=== PATIENT | female | born 1945 | race Caucasian/White ===

== ENCOUNTER 2019-12-20 09:00 | Observation (INO) ==
[2019-12-20 09:36] LABS: Basophils # 0.1 K/mcL (0.0-0.2); Basophils % 0.9 %; Eosinophils # 0.1 K/mcL (0.0-0.6); Eosinophils % 1.5 %; Hematocrit 45.2 % (35.3-44.9); Hemoglobin 14.5 g/dL (11.5-15.4); Immature Granulocytes % 0.2 % (0-4); Lymphocytes # 1.5 K/mcL (0.6-4.6); Lymphocytes % 18.9 %; Mean Corpuscular HGB Conc 32.1 g/dL (31.6-35.5); Mean Corpuscular Hemoglobin 29.3 pg (28.0-33.3); Mean Corpuscular Volume 91.3 fL (83.0-100.0); Mean Platelet Volume 11.5 fL (9.4-12.4); Monocytes # 0.6 K/mcL (0.0-1.3); Monocytes % 7.1 %; Neutrophils # 5.8 K/mcL (1.6-8.9); Platelet Count 175 K/mcL (140-400); Red Blood Count 4.95 M/mcL (3.82-4.97); Red Cell Distribution Width 13.2 % (11.5-14.5); Segmented Neutrophils % 71.4 %; White Blood Count 8.1 K/mcL (4.3-11.1)
[2019-12-20 09:41] LABS: Prothrombin Time 11.9 Seconds (9.4-12.1)
[2019-12-20 09:44] LABS: Activated Partial Thrombo Time 32.8 Seconds (26.0-36.0)
[2019-12-20 09:57] LABS: Alanine Aminotransferase 13 Units/L (7-52); Albumin 4.2 g/dL (3.5-5.7); Albumin/Globulin Ratio 1.8 (1.1-2.2); Alkaline Phosphatase 63 Units/L (34-104); Aspartate Amino Transferase 19 Units/L (13-39); BUN/Creatinine Ratio 16 (6-26); Bilirubin,Direct 0.1 mg/dL (0.0-0.2); Bilirubin,Indirect 0.7 mg/dL (0.0-1.0); Bilirubin,Total 0.8 mg/dL (0.3-1.0); Blood Urea Nitrogen 11 mg/dL (8-23); Calcium 10.2 mg/dL (8.6-10.3); Carbon Dioxide 29 mEq/L (23-29); Chloride 105 mEq/L (98-107); Globulin 2.4 g/dL (2.4-3.5); Glucose 177 mg/dL (70-105); Lipase 9 Units/L (11-82); Osmolality,Calculated 298 (280-300); Potassium 3.6 mEq/L (3.5-5.1); Sodium 142 mEq/L (136-145); Total Protein 6.6 g/dL (6.4-8.9); Troponin I < 0.03 ng/mL (< 0.04); eGFR For African Americans > 60 (> 60); eGFR For Non-African Americans > 60 (> 60)
[2019-12-20] MEDS ORDERED: Nitroglycerin 1 INCH/GM PACKET TP ONE (10:51)
[2019-12-20] MEDS ORDERED: *HR* OxyCODONE Immed Rel 5 MG TABLET PO PRN (10:58)
[2019-12-20] MEDS ORDERED: Acetaminophen 325 MG TABLET PO PRN (10:58)
[2019-12-20] MEDS ORDERED: Ondansetron 4 MG/2 ML VIAL IVP PRN (10:58)
[2019-12-20] MEDS ORDERED: Naloxone 0.4 MG/ML INJ IVP PRN (10:58)
[2019-12-20] MEDS ORDERED: Aspirin 81 MG TAB.CHEW PO SCH (11:00)
[2019-12-20] MEDS ORDERED: cloNIDine HCL 0.1 MG TABLET PO ONE (12:06)
[2019-12-20] MEDS ORDERED: Famotidine 20 MG TABLET PO PRN (13:35)
[2019-12-20] MEDS ORDERED: Dextrose Gel 15 GM/37.5 ML TUBE PO PRN ×2 (13:39)
[2019-12-20] MEDS ORDERED: *HR* Dextrose 50 % in Water (Vial) 50 ML VIAL IVP PRN (13:39)
[2019-12-20] MEDS ORDERED: D5% in Water 1,000 ML IVC PRN (13:39)
[2019-12-20] MEDS ORDERED: Aspirin 81 MG TAB.CHEW PO ONE (14:00)
[2019-12-20] MEDS: Aspirin 81 MG TAB.CHEW PO SCH (14:19)
[2019-12-20] MEDS ORDERED: Nystatin POWDER 30 GM BOTTLE TP PRN (15:20)
[2019-12-20] MEDS: *HR* Heparin 5,000 UNIT/ML VIAL SQ SCH (16:04)
[2019-12-20] MEDS: Gabapentin 300 MG CAPSULE PO SCH ×2 (16:05→19:44)
[2019-12-20] MEDS: *HR* HYDROcodone/Acet 5/325 mg TABLET PO PRN ×2 (16:05→22:18)
[2019-12-20] MEDS: Insulin LISPRO 300 UNITS/3 ML VIAL SQ SCH (16:24)
[2019-12-20] MEDS: *HR* LORazepam 0.5 MG TABLET PO PRN (18:49)
[2019-12-20] MEDS: cloNIDine HCL 0.1 MG TABLET PO SCH (19:44)
[2019-12-20] MEDS ORDERED: Insulin DETEMIR 100 UNIT/ML X5UNITS SQ SCH (21:00)
[2019-12-21 02:54] LABS: Basophils # 0.1 K/mcL (0.0-0.2); Basophils % 0.8 %; Eosinophils # 0.1 K/mcL (0.0-0.6); Eosinophils % 1.9 %; Hematocrit 39.5 % (35.3-44.9); Hemoglobin 12.7 g/dL (11.5-15.4); Immature Granulocytes % 0.2 % (0-4); Lymphocytes # 1.8 K/mcL (0.6-4.6); Lymphocytes % 27.7 %; Mean Corpuscular HGB Conc 32.2 g/dL (31.6-35.5); Mean Corpuscular Hemoglobin 29.5 pg (28.0-33.3); Mean Corpuscular Volume 91.6 fL (83.0-100.0); Mean Platelet Volume 11.3 fL (9.4-12.4); Monocytes # 0.6 K/mcL (0.0-1.3); Monocytes % 8.9 %; Neutrophils # 3.9 K/mcL (1.6-8.9); Platelet Count 167 K/mcL (140-400); Red Blood Count 4.31 M/mcL (3.82-4.97); Red Cell Distribution Width 13.2 % (11.5-14.5); Segmented Neutrophils % 60.5 %; White Blood Count 6.4 K/mcL (4.3-11.1)
[2019-12-21 03:18] LABS: BUN/Creatinine Ratio 27 (6-26); Blood Urea Nitrogen 17 mg/dL (8-23); Calcium 9.6 mg/dL (8.6-10.3); Carbon Dioxide 26 mEq/L (23-29); Chloride 105 mEq/L (98-107); Chol/HDL Ratio 5.5 (0-4.9); Cholesterol 170 mg/dL (< 200); Glucose 163 mg/dL (70-105); HDL Cholesterol 31 mg/dL (40-59); LDL Cholesterol,Calculated 106 mg/dL (< 100); Magnesium 1.6 mg/dL (1.6-2.6); Osmolality,Calculated 293 (280-300); Potassium 3.2 mEq/L (3.5-5.1); Sodium 139 mEq/L (136-145); Triglycerides 166 mg/dL (< 150); eGFR For African Americans > 60 (> 60); eGFR For Non-African Americans > 60 (> 60)
[2019-12-21] MEDS: *HR* Heparin 5,000 UNIT/ML VIAL SQ SCH ×2 (06:08→17:21)
[2019-12-21] MEDS ORDERED: Regadenoson 0.4 MG/5 ML SYRINGE IVP ONE (06:12)
[2019-12-21] MEDS ORDERED: lisinopriL 20 MG TABLET PO SCH (09:00)
[2019-12-21] MEDS: *HR* LORazepam 0.5 MG TABLET PO PRN (09:56)
[2019-12-21] MEDS: Insulin LISPRO 300 UNITS/3 ML VIAL SQ SCH ×3 (10:50→16:59)
[2019-12-21] MEDS: Gabapentin 300 MG CAPSULE PO SCH ×2 (13:09→13:18)
[2019-12-21] MEDS: Aspirin 81 MG TAB.CHEW PO SCH (13:09)
[2019-12-21] MEDS: cloNIDine HCL 0.1 MG TABLET PO SCH (13:09)
[2019-12-21] MEDS: *HR* HYDROcodone/Acet 5/325 mg TABLET PO PRN (13:10)
[2019-12-21 16:55] VITALS: BP 143/81
== END 2019-12-21 18:16 | disposition home or self-care (01) ==
LOC: EMEROOARM 09:00 → 3BNU 09:00
PROVIDERS: ADMIT Internal Medicine; ATTEND Internal Medicine

== ENCOUNTER 2020-01-12 11:24 | Inpatient (IN) ==
[2020-01-12] MEDS ORDERED: Naloxone 0.4 MG/ML INJ IVP STA (12:08)
[2020-01-12 12:26] LABS: Basophils # 0.1 K/mcL (0.0-0.2); Basophils % 0.7 %; Eosinophils # 0.2 K/mcL (0.0-0.6); Eosinophils % 1.6 %; Hematocrit 43.8 % (35.3-44.9); Hemoglobin 13.7 g/dL (11.5-15.4); Immature Granulocytes % 0.2 % (0-4); Lymphocytes # 2.2 K/mcL (0.6-4.6); Lymphocytes % 18.3 %; Mean Corpuscular HGB Conc 31.3 g/dL (31.6-35.5); Mean Corpuscular Hemoglobin 29.5 pg (28.0-33.3); Mean Corpuscular Volume 94.4 fL (83.0-100.0); Mean Platelet Volume 11.9 fL (9.4-12.4); Monocytes # 0.8 K/mcL (0.0-1.3); Monocytes % 6.5 %; Neutrophils # 8.8 K/mcL (1.6-8.9); Platelet Count 204 K/mcL (140-400); Red Blood Count 4.64 M/mcL (3.82-4.97); Segmented Neutrophils % 72.7 %; White Blood Count 12.1 K/mcL (4.3-11.1)
[2020-01-12] MEDS ORDERED: 0.9 % Sodium Chloride 1,000 ML IVC ONE (12:57)
[2020-01-12 13:00] LABS: Alanine Aminotransferase 15 Units/L (7-52); Albumin 4.1 g/dL (3.5-5.7); Albumin/Globulin Ratio 1.6 (1.1-2.2); Alkaline Phosphatase 70 Units/L (34-104); Aspartate Amino Transferase 16 Units/L (13-39); BUN/Creatinine Ratio 13 (6-26); Bilirubin,Direct 0.1 mg/dL (0.0-0.2); Bilirubin,Indirect 0.5 mg/dL (0.0-1.0); Bilirubin,Total 0.6 mg/dL (0.3-1.0); Blood Urea Nitrogen 31 mg/dL (8-23); Calcium 9.8 mg/dL (8.6-10.3); Carbon Dioxide 24 mEq/L (23-29); Chloride 101 mEq/L (98-107); Ethanol < 10 mg/dL (Less than 10); Globulin 2.5 g/dL (2.4-3.5); Glucose 209 mg/dL (70-105); Osmolality,Calculated 293 (280-300); Sodium 135 mEq/L (136-145); Total Protein 6.6 g/dL (6.4-8.9); Troponin I < 0.03 ng/mL (< 0.04); eGFR For African Americans 23 (> 60); eGFR For Non-African Americans 19 (> 60)
[2020-01-12 13:24] LABS: Bacteria,Urine Few per hpf (None-Few); Bilirubin,Urine Negative (Negative); Blood,Urine Negative (Negative); Clarity,Urine Turbid (Clear); Color,Urine Yellow (Yellow); Glucose,Urine (UA) Normal (Normal); Granular Casts,Urine Few per lpf (None Seen); Hyaline Casts,Urine Moderate per lpf (None Seen); Ketones,Urine Trace mg/dL (Negative); Leukocyte Esterase,Urine Small (Negative); Mucus,Urine Few per lpf (None-Few); Nitrite,Urine Negative (Negative); PH,Urine 5.5 pH Units (5.0-8.0); Protein,Urine 30 mg/dL (Neg-Trace); RBC,Urine 0-3 per hpf (0-3); Specific Gravity,Urine 1.024 (1.010-1.025); Squamous Epithelial Cell,Urine Few per hpf (None-Few)
[2020-01-12 14:08] LABS: Amphetamine Screen,Urine Negative ng/mL (Cutoff=1000); Barbiturate Screen,Urine Negative ng/mL (Cutoff=200)
[2020-01-12 14:09] LABS: Benzodiazepines Screen,Urine Positive ng/mL (Cutoff=300); Cannabinoid Screen,Urine Negative ng/mL (Cutoff = 50); Cocaine Screen,Urine Negative ng/mL (Cutoff= 300); Opiate Screen,Urine Positive ng/mL (Cutoff=300); Phencyclidine Screen,Urine Negative ng/mL (Cutoff=25)
[2020-01-12] MEDS ORDERED: Naloxone 0.4 MG/ML INJ IVP PRN (14:35)
[2020-01-12] MEDS ORDERED: Acetaminophen 325 MG TABLET PO PRN (14:35)
[2020-01-12] MEDS ORDERED: 0.9 % Sodium Chloride 1,000 ML IVC SCH (14:45)
[2020-01-12] MEDS ORDERED: Dextrose Gel 15 GM/37.5 ML TUBE PO PRN ×2 (14:47)
[2020-01-12] MEDS ORDERED: *HR* Dextrose 50 % in Water (Vial) 50 ML VIAL IVP PRN (14:47)
[2020-01-12] MEDS ORDERED: D5% in Water 1,000 ML IVC PRN (14:47)
[2020-01-12] MEDS ORDERED: Famotidine 20 MG TABLET PO PRN (14:51)
[2020-01-12] MEDS ORDERED: cefTRIAXone 1,000 MG in 0.9 % Sodium Chloride Mini Bag 100 ML IVPB SCH (15:00)
[2020-01-12] MEDS: cefTRIAXone 1,000 MG in Water for inj. (sterile) 10 ML IVP SCH (15:32)
[2020-01-12] MEDS ORDERED: Perflutren Lipid Microsphere 1.3 ML in 0.9 % Sodium Chloride 8.7 ML IVP PRN (15:53)
[2020-01-12] MEDS ORDERED: Aspirin Enteric Coated 325 MG Tablet PO ONE (16:17)
[2020-01-12] MEDS ORDERED: *HR* LORazepam 2 MG/ML VIAL IVP PRN (16:19)
[2020-01-12] MEDS: Insulin LISPRO 300 UNITS/3 ML VIAL SQ SCH ×2 (18:27→21:02)
[2020-01-13 00:39] LABS: Basophils # 0.1 K/mcL (0.0-0.2); Basophils % 0.9 %; Eosinophils # 0.2 K/mcL (0.0-0.6); Eosinophils % 2.5 %; Hematocrit 39.9 % (35.3-44.9); Immature Granulocytes % 0.1 % (0-4); Lymphocytes # 1.8 K/mcL (0.6-4.6); Lymphocytes % 23.2 %; Mean Corpuscular HGB Conc 32.6 g/dL (31.6-35.5); Mean Corpuscular Hemoglobin 30.3 pg (28.0-33.3); Mean Platelet Volume 11.5 fL (9.4-12.4); Monocytes # 0.5 K/mcL (0.0-1.3); Monocytes % 6.6 %; Neutrophils # 5.3 K/mcL (1.6-8.9); Platelet Count 159 K/mcL (140-400); Red Blood Count 4.29 M/mcL (3.82-4.97); Red Cell Distribution Width 12.6 % (11.5-14.5); Segmented Neutrophils % 66.7 %; White Blood Count 7.9 K/mcL (4.3-11.1)
[2020-01-13 00:56] LABS: Calcium 9.5 mg/dL (8.6-10.3); Magnesium 1.7 mg/dL (1.6-2.6); Phosphorous 4.1 mg/dL (2.7-4.5); Potassium 4.3 mEq/L (3.5-5.1)
[2020-01-13 00:57] LABS: Chol/HDL Ratio 5.6 (0-4.9)
[2020-01-13] MEDS ORDERED: 0.9 % Sodium Chloride 1,000 ML IVC SCH (07:45)
[2020-01-13] MEDS: Aspirin Enteric Coated 81 MG Tablet PO SCH (08:05)
[2020-01-13] MEDS: Insulin LISPRO 300 UNITS/3 ML VIAL SQ SCH ×4 (08:05→20:57)
[2020-01-13 09:00] LABS: Estimated Average Glucose 197 mg/dl; Hemoglobin A1C 8.5 %
[2020-01-13] MEDS ORDERED: *HR* LORazepam 2 MG/ML VIAL IVP STA (11:33)
[2020-01-13] MEDS ORDERED: Acetaminophen 325 MG TABLET PO PRN (12:50)
[2020-01-13] MEDS ORDERED: *HR* HYDROcodone/Acet 5/325 mg TABLET PO PRN (12:50)
[2020-01-13] MEDS: cefTRIAXone 1,000 MG in Water for inj. (sterile) 10 ML IVP SCH (14:30)
[2020-01-13] MEDS: *HR* HYDROcodone/Acet 5/325 mg TABLET PO PRN ×2 (17:56→23:58)
[2020-01-13] MEDS ORDERED: Insulin DETEMIR 100 UNIT/ML X5UNITS SQ SCH (21:00)
[2020-01-13] MEDS ORDERED: Methyl Salicylate/Menthol 57 APPL/57 GM TUBE TP PRN (21:30)
[2020-01-13] MEDS ORDERED: *HR* LORazepam 0.5 MG TABLET PO ONE (22:45)
[2020-01-14 02:15] LABS: BUN/Creatinine Ratio 21 (6-26); Blood Urea Nitrogen 17 mg/dL (8-23); Calcium 10.1 mg/dL (8.6-10.3); Carbon Dioxide 22 mEq/L (23-29); Chloride 108 mEq/L (98-107); Glucose 123 mg/dL (70-105); Osmolality,Calculated 295 (280-300); Sodium 141 mEq/L (136-145); eGFR For African Americans > 60 (> 60); eGFR For Non-African Americans > 60 (> 60)
[2020-01-14] MEDS ORDERED: Ondansetron ODT 4 MG TAB.RAPDIS SL ONE (03:40)
[2020-01-14] MEDS: *HR* HYDROcodone/Acet 5/325 mg TABLET PO PRN ×3 (06:02→20:26)
[2020-01-14] MEDS: Insulin LISPRO 300 UNITS/3 ML VIAL SQ SCH ×4 (08:08→20:28)
[2020-01-14] MEDS: lisinopriL 20 MG TABLET PO SCH (08:09)
[2020-01-14] MEDS: Aspirin Enteric Coated 81 MG Tablet PO SCH (08:09)
[2020-01-14] MEDS: Gabapentin 300 MG CAPSULE PO SCH ×3 (08:09→20:26)
[2020-01-14] MEDS: Nystatin POWDER 30 GM BOTTLE TP SCH ×2 (15:31→20:27)
[2020-01-14] MEDS ORDERED: Ondansetron 4 MG/2 ML VIAL IVP PRN (19:35)
[2020-01-14] MEDS ORDERED: Insulin DETEMIR 100 UNIT/ML X5UNITS SQ SCH (21:00)
[2020-01-14] MEDS ORDERED: Ketorolac 15 MG/ML VIAL IVP ONE (22:11)
[2020-01-14] MEDS ORDERED: *HR* Promethazine 25 MG/ML VIAL IVP ONE (22:12)
[2020-01-15] MEDS: Insulin LISPRO 300 UNITS/3 ML VIAL SQ SCH ×2 (08:09→12:08)
[2020-01-15 08:41] LABS: BUN/Creatinine Ratio 16 (6-26); Blood Urea Nitrogen 14 mg/dL (8-23); Carbon Dioxide 23 mEq/L (23-29); Chloride 107 mEq/L (98-107); Glucose 185 mg/dL (70-105); Osmolality,Calculated 293 (280-300); Potassium 4.2 mEq/L (3.5-5.1); Sodium 139 mEq/L (136-145); eGFR For African Americans > 60 (> 60); eGFR For Non-African Americans > 60 (> 60)
[2020-01-15] MEDS ORDERED: cloNIDine HCL 0.1 MG TABLET PO SCH ×2 (09:00→21:00)
[2020-01-15] MEDS: Aspirin Enteric Coated 81 MG Tablet PO SCH (09:14)
[2020-01-15] MEDS: lisinopriL 20 MG TABLET PO SCH (09:15)
[2020-01-15] MEDS: Gabapentin 300 MG CAPSULE PO SCH (09:15)
[2020-01-15] MEDS: Nystatin POWDER 30 GM BOTTLE TP SCH (09:17)
[2020-01-15 11:23] VITALS: BP 132/85
[2020-01-15] MEDS: *HR* HYDROcodone/Acet 5/325 mg TABLET PO PRN (12:17)
== END 2020-01-15 14:50 | disposition home or self-care (01) | DRG 682 ==
LOC: EMEROOARM 11:24 → 3ANU 11:24 → SUATTDRO 14:23 → 3ANU 14:24
PROVIDERS: ADMIT Internal Medicine; ATTEND Internal Medicine